=== PATIENT | female | born 1980 | race Caucasian/White ===

== ENCOUNTER 2017-04-08 12:51 | Outpatient (CLI) | payer OTHER ==
[~2017-04-08 12:51] MED LIST: SYNTHROID50 MCG
== END 2017-04-08 13:15 | disposition home or self-care (01) ==
LOC: MAMO-SONO 12:51
DX: Z12.31 Encounter for screening mammogram for malignant neoplasm of breast (principal); N61.0 Mastitis without abscess

== ENCOUNTER 2017-04-20 08:28 | Outpatient (CLI) | payer OTHER | END 2017-04-20 08:29 | disposition home or self-care (01) | LOC: SONOGRAMA 08:28 | DX: E04.1 Nontoxic single thyroid nodule (principal) ==

== ENCOUNTER 2017-04-22 07:38 | Outpatient (CLI) | payer OTHER | END 2017-04-22 08:05 | disposition home or self-care (01) | LOC: TOM 07:38 | DX: E04.1 Nontoxic single thyroid nodule (principal) ==

== ENCOUNTER 2020-06-15 11:47 | Outpatient (CLI) | payer OTHER | END 2020-06-15 11:56 | disposition home or self-care (01) | LOC: SONOGRAMA 11:47 | DX: R10.10 Upper abdominal pain, unspecified (principal) ==

== ENCOUNTER → 2020-07-20 17:31 | Outpatient (CLI) | payer OTHER | END | disposition home or self-care (01) | LOC: PPH VACUNA 17:31 | DX: Z23 Encounter for immunization (principal) ==

== ENCOUNTER 2022-09-05 11:29 | Outpatient (CLI) | payer OTHER | END 2022-09-05 11:37 | disposition home or self-care (01) | LOC: SONOGRAMA 11:29 | PROVIDERS: ATTEND Internal Medicine Endocrinology, Diabetes & Metabolism | DX: E04.1 Nontoxic single thyroid nodule (principal) ==

== ENCOUNTER 2023-03-05 10:48 | Outpatient (CLI) | payer OTHER | END 2023-03-05 10:59 | disposition home or self-care (01) | LOC: MAMO-SONO 10:48 | PROVIDERS: ATTEND Family Medicine | DX: Z12.31 Encounter for screening mammogram for malignant neoplasm of breast (principal); N60.11 Diffuse cystic mastopathy of right breast; N60.12 Diffuse cystic mastopathy of left breast; R10.2 Pelvic and perineal pain ==

== ENCOUNTER 2024-04-27 09:04 | Outpatient (CLI) | payer OTHER | END 2024-04-27 09:10 | disposition home or self-care (01) | LOC: RAD 09:04 | PROVIDERS: ATTEND Obstetrics & Gynecology | DX: E04.1 Nontoxic single thyroid nodule (principal); E03.9 Hypothyroidism, unspecified; M54.50 Low back pain, unspecified; M54.11 Radiculopathy, occipito-atlanto-axial region ==